=== PATIENT | female | born 1990 | race Caucasian/White ===

== ENCOUNTER 2019-06-14 16:37 | Emergency (ER) | payer OTHER ==
[~2019-06-14] VITALS: Ht 157.5 cm; Wt 63.5 kg
[2019-06-14] MEDS ORDERED: FLONASE ALLERG9.9 ML NASAL (19:13)
[2019-06-14] MEDS ORDERED: TOBRADEX EYE DR10 ML OP (19:13)
== END 2019-06-14 19:31 ==
LOC: ER 16:37
DX: H10.32 Unspecified acute conjunctivitis, left eye (principal)